=== PATIENT | female | born 1960 | race Caucasian/White ===

== ENCOUNTER 2017-04-08 08:00 | Day surgery (SDC) | payer OTHER ==
[~2017-04-08] VITALS: Ht 170.2 cm; Wt 90.7 kg
[~2017-04-08 08:00] MED LIST: CHOL400T PO; LEVO100T6 PO; Sodium Chloride LOK Flush 10 mL Syringe IV PRN; fentaNYL-PF 50 mCg/mL 2 mL Inj IVPUSH PRN
[2017-04-08 08:19] VITALS: BP 132/70; PULSE 55; RESP 16; O2SAT 96
[2017-04-08] MEDS ORDERED: BUPR75TA10 PO (08:20)
[2017-04-08] MEDS: 0.9% Sodium Chloride 1,000 ML IV SCH ×2 (08:39→09:05)
[2017-04-08 09:17] VITALS: BP 111/65; PULSE 55; RESP 55; O2SAT 96
[2017-04-08 09:27] VITALS: BP 100/58; PULSE 53; RESP 16; O2SAT 96
[2017-04-08 09:37] VITALS: BP 98/61; PULSE 52; RESP 16; O2SAT 95
[2017-04-08 09:47] VITALS: BP 112/64; PULSE 63; RESP 16; O2SAT 97
--- NOTE | 2017-04-08 09:55 | ENDO ---
[address] [address] ENDOSCOPY PROCEDURE PATIENT: RONEN WHITMAN : 1960 MR#: [id number] ADMIT: 04/08/2017 JOB ID: [id number] PRIMARY PROVIDER: Sarah Serna MD PROCEDURE: Colonoscopy. INDICATIONS: A 57-year-old female with a transient episode of rectal bleeding. Prior to that, she had normal stools, and she has long since recovered formed normal bowel movements. Repeat colonoscopy is pursued to exclude any sinister or persistent pathology. The patient had an exam done at age 51 without any significant pathology apart from hyperplastic polyp. EQUIPMENT: [employer]. SEDATION: Versed 5 mg and 150 mcg fentanyl. COMPLICATIONS: None identified. BOWEL PREPARATION: Fair, adequate exam. PROCEDURE INFO: After the risks and benefits were explained, written and verbal informed consent was obtained. The patient was brought into the Endoscopy Suite and placed into the left lateral decubitus position. Sedation was achieved as above. A digital rectal examination accomplished. Minimal internal hemorrhoids. No other significant pathology appreciated. No masses. The scope was introduced into the rectum and advanced to the cecum as identified by the appendiceal orifice and ileocecal valve. The terminal ileum was briefly accessed and the scope was then slowly withdrawn to carefully examine the mucosa for any defects or lesions. Retroflexed views were avoided in the rectum. Multiple direct views were made through the dentate line for exclusion of pathology. The colon was decompressed. The scope removed the patient who tolerated the procedure well. FINDINGS: The patient had a fairly tortuous navigation through the sigmoid. No significant mucosal pathology identified throughout. The terminal ileum was interrogated as above and appeared visually normal. ENDOSCOPIC DIAGNOSIS: 1. Minimal internal hemorrhoids. 2. Otherwise visually unremarkable colonoscopy. RECOMMENDATIONS: 1. Continue adequate dietary roughage for soft regular stools. 2. Repeat colonoscopy in 10 years' time, sooner should symptoms warrant.
== END 2017-04-08 23:59 | disposition home or self-care (01) ==
LOC: END 08:00
PROVIDERS: ATTEND Internal Medicine Gastroenterology
DX: K62.5 Hemorrhage of anus and rectum (principal); K64.8 Other hemorrhoids; Z86.010 Personal history of colon polyps; K21.9 Gastro-esophageal reflux disease without esophagitis
CPT/HCPCS: 45378; 99153; G0500; J7030